=== PATIENT | female | born 1965 | race Caucasian/White ===

== ENCOUNTER → 2017-07-04 | Outpatient (CLI) | payer BC ==
[~2017-07-04] MED LIST: NS 100 ML IV 100 ML IV ONE
--- NOTE | 2017-07-04 11:24 | CT ---
CT abdomen with contrast Indication: Left upper quadrant pain Technique: Helical CT images of the abdomen were obtained with IV contrast. Reformatted images in th e coronal and sagittal planes were also generated for review. Comparison: None Findings: Visualized lung bases are clear. No aggressive osseous lesions are identified. There are numerous gallstones with nondistended gallbladder without evidence of gallbladder-wall thi ckening/edema, pericholecystic fluid or biliary dilatation to suggest acute cholecystitis. The liver , spleen, pancreas and adrenals are unremarkable. Evaluation for nephrolithiasis is limited due to c ontrast excretion into the bilateral renal collecting systems. Given these limitations, both kidneys enhance symmetrically without evidence of obstruction. A tiny sliding hiatal hernia is noted. The imaged abdominal GI tract otherwise appears normal. The I VC and abdominal aorta are unremarkable. No free air, free fluid or lymphadenopathy is identified. Impression: 1. Extensive cholelithiasis without CT evidence of acute cholecystitis. 2. Otherwise, no acute abnormality to explain patient's left upper quadrant pain. Reported By:
== END ==
LOC: RAD 08:55
PROVIDERS: ATTEND Internal Medicine
DX: R10.12 Left upper quadrant pain (principal)
CPT/HCPCS: 74160; A4222

== ENCOUNTER 2021-04-10 14:12 | Observation (INO) ==
--- NOTE | 2021-04-10 15:08 | DR.GENAD ---
HPI Time Seen Time Seen by Provider: 04/10/21 14:55 PCP Primary Care Physician: HYACINTH Complaint/Symptoms Chief Complaint:: PATIENT CAME TO ER REPORTS DRY COUGH, NAUSEA, ACHING ALL OVER, AND NO ENERGY. PATIENT WAS SEEN BY PCP ON SUNDAY AND GIVEN ROCEPHIN SHOT, DX WITH BRONCHITIS. COVID-19 Coronavirus risk:travel/contact w/high risk person: No Has patient experienced Coronavirus symptoms: No Source History Provided: Patient Mode of Arrival Mode of Arrival: Ambulatory Timing Onset of Chief Complaint: 03/20/21 PMH PMH Past Medical History: No Past Medical History: Anemia Past Medical History Comment: GENETIC HEMACHROMOCYTOSIS Past Surgical History: Yes Surgical History: Cholecystectomy Family History History of Family Medical Conditions: Yes Family Medical History: [place] Family Medical History Comment: COPD Social History Alcohol Use: None Do you use any recreational Drugs:: No Lives With: Alone Lives Where: Home Travel Risk Coronavirus risk:travel/contact w/high risk person: No Has patient experienced Coronavirus symptoms: No Infectious screening In the last 2 months have you had wt loss of >10#?: NO Have you had fever, night sweats or hemotysis?: No Have you traveled outside the country in the last 6 months?: No Isolation: Standard PE Vital Signs Vitals: Temperature 99.6 F Pulse Rate 100 Respiratory Rate 18 Blood Pressure [Right Arm] 103/54 Blood Pressure 108/57 O2 Sat by Pulse Oximetry 94 ROR Labs Reviewed Result Diagrams: 04/10/21 15:24 04/10/21 15:24 Laboratory: WBC 3.7 X10^3/uL (3.6-10.0) 04/10/21 15:24 RBC 3.59 X10^6/uL (3.5-5.4) 04/10/21 15:24 Hgb 11.8 g/dL (12.0-16.0) L 04/10/21 15:24 Hct 32.6 % (36.0-47.0) L 04/10/21 15:24 MCV 90.9 fL (80.0-100.0) 04/10/21 15:24 MCH 32.9 pg (27.0-34.0) 04/10/21 15:24 MCHC 36.2 g/dL (33.0-35.0) H 04/10/21 15:24 RDW 14.6 % (11.6-16.5) 04/10/21 15:24 Plt Count 204 X10^3/uL (150.0-450.0) 04/10/21 15:24 MPV 7.3 fL (7.4-11.0) L 04/10/21 15:24 Neut % (Auto) 63.0 % (42.0-75.0) 04/10/21 15:24 Lymph % (Auto) 27.4 % (21.0-51.0) 04/10/21 15:24 Ross % (Auto) 9.2 % (0.0-13.0) 04/10/21 15:24 Eos % (Auto) 0.0 % (0.9-2.9) L 04/10/21 15:24 Baso % (Auto) 0.4 % (0.2-1.0) 04/10/21 15:24 Neut # (Auto) 2.3 x10^3/uL (2.2-4.8) 04/10/21 15:24 Lymph # (Auto) 1.0 X10^3/uL (1.3-2.9) L 04/10/21 15:24 Ross # (Auto) 0.3 x10^3/uL (0.3-0.8) 04/10/21 15:24 Eos # (Auto) 0.0 x10^3/uL (0.0-0.2) 04/10/21 15:24 Baso # (Auto) 0.0 X10^3/uL (0.0-0.1) 04/10/21 15:24 Absolute Nucleated RBC 0.1 /100WBC 04/10/21 15:24 D-Dimer 1.35 ug/ml (0.0-0.57) H* 04/10/21 18:24 Sample Site Rra 04/10/21 17:34 ABG pH 7.480 (7.35-7.45) H 04/10/21 17:34 ABG pCO2 37.0 mmHg (35.0-45.0) 04/10/21 17:34 ABG pO2 59.0 mmHg (80.0-100.0) L 04/10/21 17:34 ABG HCO3 27.6 mmol/L (22-26) H 04/10/21 17:34 ABG O2 Saturation 92.0 % (90-100) 04/10/21 17:34 ABG Base Excess 4.0 mmol/L (-2.0-2.0) H 04/10/21 17:34 Dmoingo Test Pos 04/10/21 17:34 A-a Gradient 44.0 mmHg 04/10/21 17:34 FiO2 21.0 04/10/21 17:34 Blood Gas Comments Pt omar well eb 04/10/21 17:34 Sodium 134 mmol/L (136-145) L 04/10/21 15:24 Corrected Sodium TNP 04/10/21 15:24 Potassium 3.9 mmol/L (3.5-5.1) 04/10/21 15:24 Chloride 98 mmol/L (98-107) 04/10/21 15:24 Carbon Dioxide 30.5 mmol/L (21-32) 04/10/21 15:24 BUN 12 mg/dL (7-18) 04/10/21 15:24 Creatinine 0.74 mg/dL (0.55-1.02) 04/10/21 15:24 Est GFR (MDRD) Af Amer > 60 (>60) 04/10/21 15:24 Est GFR (MDRD) Non-Af > 60 (>60) 04/10/21 15:24 Glucose 97 mg/dL (65-99) 04/10/21 15:24 Calcium 8.5 mg/dL (8.5-10.1) 04/10/21 15:24 Corrected Calcium TNP 04/10/21 15:24 Ferritin 368 ng/mL (8-252) H 04/10/21 15:23 Total Bilirubin 0.80 mg/dL (0.2-1.0) 04/10/21 15:24 AST 32 Units/L (15-37) 04/10/21 15:24 ALT 27 Units/L (12-78) 04/10/21 15:24 Alkaline Phosphatase 75 Units/L (46-116) 04/10/21 15:24 C-Reactive Protein 32.20 mg/L (0-3.0) H 04/10/21 15:23 B-Natriuretic Peptide 8.1 pg/mL (0-79) 04/10/21 15:24 Total Protein 7.5 g/dL (6.4-8.2) 04/10/21 15:24 Albumin 3.4 g/dL (3.4-5.0) 04/10/21 15:24 Globulin 4.1 g/dL (2.5-4.5) 04/10/21 15:24 Albumin/Globulin Ratio 0.8 Ratio (1.1-2.1) L 04/10/21 15:24 Specimen Type Clean catch urine 04/10/21 15:19 Urine Color Yellow (YELLOW) 04/10/21 15:19 Urine Appearance Clear (CLEAR) 04/10/21 15:19 Urine pH 5.0 (5.0 - 8.0) 04/10/21 15:19 Ur Specific Le[place]anc 1.015 (1.000-1.030) 04/10/21 15:19 Urine Protein Negative (NEGATIVE) 04/10/21 15:19 Urine Glucose (UA) Negative (NEGATIVE) 04/10/21 15:19 Urine Ketones Negative (NEGATIVE) 04/10/21 15:19 Urine Occult Blood Negative (NEGATIVE) 04/10/21 15:19 Urine Nitrite Negative (NEGATIVE) 04/10/21 15:19 Urine Bilirubin Negative (NEGATIVE) 04/10/21 15:19 Urine Urobilinogen Normal (NORMAL) 04/10/21 15:19 Ur Leukocyte Esterase Negative (NEGATIVE) 04/10/21 15:19 Influenza Type A Ag Negative-presumptive (NEGATIVE) 04/10/21 15:00 Influenza Type B Ag Negative-presumptive (NEGATIVE) 04/10/21 15:00 SARS CoV-2 RNA Rapid ZACHARY Positive (NEGATIVE) A 04/10/21 15:00 S. pyogenes (TEM-PCR) Not detected (NOT DETECT) 04/10/21 15:00 Opioid Opioid Risk Tool Age (Calixto box if 16-45): No History of Preadolescent Sexual Abuse: No Total: 0 Total Score Risk Category: Low Risk Copyright: [employer] GO predicting aberrant behaviors Diagnosis Discharge Problem: COVID-19 virus infection, Acute respiratory distress Pneumonia Qualifiers: Pneumonia type: due to unspecified organism Laterality: bilateral Lung location: lower lobe of lung Qualified Code(s): J18.9 - Pneumonia, unspecified organism Instructions Forms: Precautions for COVID19 Patient Portal Social Distancing
[2021-04-10 15:26] LABS: BILIRUBIN,URINE NEGATIVE (NEGATIVE); BLOOD/HEMOGLOBIN,URINE NEGATIVE (NEGATIVE); GLUCOSE, URINE NEGATIVE (NEGATIVE); KETONES,URINE NEGATIVE (NEGATIVE); LEUKOCYTE ESTERASE ,URINE NEGATIVE (NEGATIVE); NITRITES,URINE NEGATIVE (NEGATIVE); PROTEIN,URINE NEGATIVE (NEGATIVE); UROBILINOGEN,URINE NORMAL (NORMAL)
[2021-04-10 15:28] LABS: APPEARANCE,URINE CLEAR (CLEAR); COLOR,URINE YELLOW (YELLOW)
[2021-04-10 15:37] LABS: BASOPHILS % (AUTO) 0.4 % (0.2-1.0); HEMATOCRIT 32.6 % (36.0-47.0); HEMOGLOBIN 11.8 g/dL (12.0-16.0); LYMPHOCYTES % (AUTO) 27.4 % (21.0-51.0); MEAN CORPUSCULAR HEMOGLOBIN 32.9 pg (27.0-34.0); MEAN CORPUSCULAR HGB CONC 36.2 g/dL (33.0-35.0); MEAN CORPUSCULAR VOLUME 90.9 fL (80.0-100.0); MEAN PLATELET VOLUME 7.3 fL (7.4-11.0); MONOCYTES # (AUTO) 0.3 x10^3/uL (0.3-0.8); MONOCYTES % (AUTO) 9.2 % (0.0-13.0); NEUTROPHILS # (AUTO) 2.3 x10^3/uL (2.2-4.8); PLATELET COUNT 204 X10^3/uL (150.0-450.0); RED BLOOD COUNT 3.59 X10^6/uL (3.5-5.4); RED CELL DISTRIBUTION WIDTH 14.6 % (11.6-16.5); WHITE BLOOD COUNT 3.7 X10^3/uL (3.6-10.0)
--- NOTE | 2021-04-10 15:41 | RAD ---
HISTORYPATIENT CAME TO ER REPORTS DRY COUGH, NAUSEA, ACHING ALL OVER, AND NO ENERGY. PATIENT WAS SEEN BY PCP ON SUNDAY AND GIVEN ROCEPHIN SHOT, DX WITH BRONCHITIS.STUDYCHEST, 1 VIEWCOMPARISONNone availableTECHNIQUEChest radiographic imaging, AP portable projection, 1 imageFINDINGSNo cardiomegaly.Patchy central airspace opacities in the right lung and in the left lower lobe.Peribronchial cuffing in the hilar regions.No pleural effusion.No pneumothorax.No acute osseous abnormality.IMPRESSIONFindings are concerning for an atypical/viral infectious process. Peribronchial cuffing can also be seen with bronchitis.Electronically signed by: Hans Quintanilla (April 10, 2021 15:38:57)
[2021-04-10 15:49] LABS: ALANINE AMINOTRANSFERASE 27 Units/L (12-78); ALBUMIN 3.4 g/dL (3.4-5.0); ALKALINE PHOSPHATASE 75 Units/L (46-116); ASPARTATE AMINO TRANSFERASE 32 Units/L (15-37); BLOOD UREA NITROGEN 12 mg/dL (7-18); CALCIUM 8.5 mg/dL (8.5-10.1); CARBON DIOXIDE 30.5 mmol/L (21-32); CHLORIDE 98 mmol/L (98-107); CREATININE 0.74 mg/dL (0.55-1.02); SODIUM 134 mmol/L (136-145); TOTAL PROTEIN 7.5 g/dL (6.4-8.2); eGFR NON BLACK RACES > 60 (>60)
[2021-04-10] MEDS ORDERED: NS 1000 ML 1,000 ML ONE (17:01)
[2021-04-10 17:36] LABS: ABG HCO3 27.6 mmol/L (22-26)
[2021-04-10 17:37] LABS: ABG ALLEN TEST POS
[2021-04-10] MEDS ORDERED: DUONEB 0.5 MG/3 MG (3 mL) NEB ONE ×2 (17:42→22:08)
[2021-04-10 17:53] LABS: STREP A BY PCR NOT DETECTED (NOT DETECT)
--- NOTE | 2021-04-10 18:40 | CT ---
HISTORYSOBSTUDYCTA CHESTCOMPARISONSame-day chest radiograph.TECHNIQUEMultiple axial images of the chest were obtained from the thoracic inlet to the upper abdomen after the administration of IV contrast. 3D reconstructions utilizing axial MIPS imaging was performed and reviewed. Dose reduction techniques including Automated Exposure Control (AEC) and adjustment of mA and kV were utilized.FINDINGSPulmonary Arteries:No central or segmental filling defect within the pulmonary arteries. Respiratory motion artifact limits evaluation of the subsegmental pulmonary arteriesThoracic Aorta:The thoracic aorta is normal in its contour without evidence for aneurysmal dilatation.Heart: No significant abnormality.Lungs/Pleura: Multifocal patchy bilateral airspace consolidations throughout the lungs. No pleural effusion or pneumothorax.Lymph nodes: Shotty mediastinal and hilar lymph nodes are likely reactiveOther: NoneUpper abdomen: No acute findingsOsseous Structures: No acute osseous findings.IMPRESSION1. No evidence of pulmonary thromboembolism2. Multifocal patchy airspace disease throughout the lungs, compatible with atypical infectious process. Findings may be seen with COVID-19Electronically signed by: Josh Simms (April 10, 2021 18:38:40)
[2021-04-10] MEDS ORDERED: TUSSIONEX PENNKINETIC SUSP PO PRN (20:14)
[2021-04-10] MEDS ORDERED: REMDESIVIR 200 MG in NS 250 ML IV 250 ML IV ONE (20:47)
[2021-04-10] MEDS ORDERED: NS 1000 ML 1,000 ML IV SCH (21:00)
[2021-04-10] MEDS ORDERED: DUONEB 0.5 MG/3 MG (3 mL) NEB SCH (21:00)
[2021-04-10] MEDS ORDERED: MELATONIN PO SCH (21:00)
[2021-04-10] MEDS: ASCORBIC ACID INJ MULTI-DOSE VIAL 1,500 MG in NS 100 ML IV 100 ML IV SCH (21:40)
[2021-04-10] MEDS: PEPCID TAB 40 MG PO SCH (22:06)
[2021-04-10] MEDS: ROBITUSSIN DM PO SCH (22:07)
[2021-04-10] MEDS: LOVENOX INJ 30 MG SYR SC SCH (22:07)
[2021-04-10] MEDS: VIBRAMYCIN PO SCH (22:07)
[2021-04-10] MEDS: ZINC SULFATE PO SCH (22:07)
[2021-04-10] MEDS: PULMICORT NEB TX 0.5 MG NEB SCH (22:13)
[2021-04-10] MEDS ORDERED: TYLENOL 325 MG TAB PO PRN (22:14)
[2021-04-11] MEDS: ASCORBIC ACID INJ MULTI-DOSE VIAL 1,500 MG in NS 100 ML IV 100 ML IV SCH ×2 (03:09→08:53)
[2021-04-11 05:09] LABS: BASOPHILS % (AUTO) 1.4 % (0.2-1.0); EOSINOPHILS % (AUTO) 0.1 % (0.9-2.9); HEMATOCRIT 28.5 % (36.0-47.0); HEMOGLOBIN 10.2 g/dL (12.0-16.0); LYMPHOCYTES % (AUTO) 40.1 % (21.0-51.0); MEAN CORPUSCULAR HEMOGLOBIN 32.9 pg (27.0-34.0); MEAN CORPUSCULAR HGB CONC 35.9 g/dL (33.0-35.0); MEAN CORPUSCULAR VOLUME 91.6 fL (80.0-100.0); MEAN PLATELET VOLUME 8.7 fL (7.4-11.0); MONOCYTES # (AUTO) 0.2 x10^3/uL (0.3-0.8); MONOCYTES % (AUTO) 9.7 % (0.0-13.0); NEUTROPHILS # (AUTO) 1.2 x10^3/uL (2.2-4.8); NEUTROPHILS % (AUTO) 48.7 % (42.0-75.0); PLATELET COUNT 142 X10^3/uL (150.0-450.0); RED BLOOD COUNT 3.12 X10^6/uL (3.5-5.4); RED CELL DISTRIBUTION WIDTH 14.2 % (11.6-16.5); WHITE BLOOD COUNT 2.6 X10^3/uL (3.6-10.0)
[2021-04-11 05:20] LABS: ALANINE AMINOTRANSFERASE 22 Units/L (12-78); ALBUMIN 2.8 g/dL (3.4-5.0); ALKALINE PHOSPHATASE 66 Units/L (46-116); ASPARTATE AMINO TRANSFERASE 33 Units/L (15-37); BLOOD UREA NITROGEN 8 mg/dL (7-18); CALCIUM 7.8 mg/dL (8.5-10.1); CARBON DIOXIDE 26.7 mmol/L (21-32); CHLORIDE 103 mmol/L (98-107); COR CA(FOR HYPOALB) 8.8 mg/dL (8.5-10.1); CREATININE 0.68 mg/dL (0.55-1.02); SODIUM 137 mmol/L (136-145); TOTAL PROTEIN 6.4 g/dL (6.4-8.2); eGFR NON BLACK RACES > 60 (>60)
[2021-04-11] MEDS ORDERED: K-RIDER 10 MEQ/NS 100 ML 10 MEQ/100 ML BAG IV PRN (05:26)
[2021-04-11] MEDS ORDERED: POTASSIUM CHLORIDE LIQ 20 MEQ UDC PO PRN (05:26)
[2021-04-11] MEDS ORDERED: POTASSIUM CHL 60 MEQ/NS 0.45% 500 ML IV PRN (05:26)
[2021-04-11] MEDS ORDERED: POTASSIUM CHL 40 MEQ/NS 0.45% 500 ML IV PRN (05:26)
[2021-04-11] MEDS ORDERED: KLOR-CON PO PRN (05:26)
[2021-04-11] MEDS ORDERED: MICRO K EXTEN CAP 10 MEQ PO PRN (05:26)
[2021-04-11] MEDS ORDERED: K-DUR TAB 20 MEQ PO PRN (05:26)
[2021-04-11 06:56] VITALS: BMI 28.5
[2021-04-11] MEDS ORDERED: ZOFRAN INJ 4 MG VIAL IVP PRN (08:18)
[2021-04-11] MEDS: ZINC SULFATE PO SCH (08:53)
[2021-04-11] MEDS: ROBITUSSIN DM PO SCH (08:54)
[2021-04-11] MEDS: VIBRAMYCIN PO SCH (08:54)
[2021-04-11] MEDS: LOVENOX INJ 30 MG SYR SC SCH (08:55)
[2021-04-11] MEDS: PEPCID TAB 40 MG PO SCH (08:55)
[2021-04-11] MEDS ORDERED: DECADRON TAB PO SCH (09:00)
[2021-04-11] MEDS ORDERED: TRICOR TAB 160 MG PO SCH (09:00)
[2021-04-11] MEDS ORDERED: LIPITOR TAB 80 MG PO SCH (09:00)
[2021-04-11] MEDS ORDERED: VITAMIN A PO SCH (09:00)
[2021-04-11] MEDS ORDERED: VITAMIN D (1.25MG) PO SCH (09:00)
[2021-04-11] MEDS ORDERED: VSL#3 PO SCH (09:00)
[2021-04-11] MEDS: PULMICORT NEB TX 0.5 MG NEB SCH (09:34)
[2021-04-11] MEDS: DUONEB 0.5 MG/3 MG (3 mL) NEB SCH ×2 (09:34→12:11)
[2021-04-11] MEDS ORDERED: REMDESIVIR 100 MG in NS 250 ML IV 250 ML IV SCH (11:00)
[2021-04-11 12:22] VITALS: BP 117/57
[2021-04-12] MEDS ORDERED: VITAMIN A PO SCH (09:00)
[2021-04-12] MEDS ORDERED: VITAMIN D3 125 mcg (5,000 UNITS) PO SCH (09:00)
== END 2021-04-11 14:30 | disposition home or self-care (01) ==
LOC: ER 14:12 → ICU 20:23 → INTOOBSV 20:23 → ICU 20:50
PROVIDERS: ADMIT Internal Medicine; ATTEND Internal Medicine
DX: U07.1 COVID-19; J12.82 Pneumonia due to coronavirus disease 2019; R79.89 Other specified abnormal findings of blood chemistry; Z79.01 Long term (current) use of anticoagulants; R06.02 Shortness of breath